=== PATIENT | male | born 1955 | race Caucasian/White ===

== ENCOUNTER 2017-05-02 11:25 | Observation (INO) ==
[2017-05-02] MEDS ORDERED: NITROGLYCERIN SL 0.4 MG TABLET SL PRN (11:58)
[2017-05-02] MEDS ORDERED: ENOXAPARIN 100 MG/ML SYRINGE SUBCUT STA (11:58)
[2017-05-02] MEDS ORDERED: ASPIRIN 325 MG TABLET PO STA (11:58)
[2017-05-02] MEDS ORDERED: ASPIRIN 325 MG TABLET ONE (12:00)
[2017-05-02] MEDS ORDERED: ENOXAPARIN 100 MG/ML SYRINGE SUBCUT ONE (12:00)
[2017-05-02] MEDS ORDERED: NITROGLYCERIN 2% OINT 1 INCH/GM PACK TOP ONE (12:00)
[2017-05-02] MEDS ORDERED: NITROGLYCERIN SL 0.4 MG TABLET SL ONE (12:01)
[2017-05-02 12:24] LABS: Basophils # 0.1 10*3/uL (0.0-0.2); Basophils % 0.7 % (0.0-0.8); Eosinophils # 0.5 10*3/uL (0.0-0.87); Eosinophils % 7.4 % (0.00-10.9); Hematocrit 42.7 VOL% (42.0-52.0); Hemoglobin 14.8 GM/DL (14.0-18.0); Immature Granulocytes Absolute 0.07 #; Lymphocytes # 1.7 10*3/uL (1.4-4.0); Lymphocytes % 23.7 % (21.2-54.2); Mean Corpuscular HGB Conc 34.7 GM/DL (32-36); Mean Corpuscular Hemoglobin 35 PG (27-34); Mean Corpuscular Volume 101.4 FL (87-102); Mean Platelet Volume 9.9 FL (9.6-12.0); Monocytes # 0.3 10*3/uL (0.11-0.8); Monocytes % 3.7 % (1.7-12.7); Neutrophils # 4.5 10*3/uL (1.4-7.4); Neutrophils % 63.5 % (38.7-73.9); Platelet Count 289 T/CUMM (130-400); Red Blood Count 4.21 MC/CUMM (3.8-5.5); Red Cell Distribution Width 11.8 % (9.3-17.3)
[2017-05-02 12:53] LABS: Albumin 4.2 G/DL (3.4-5.0); Bilirubin,Total 0.7 MG/DL (0.2-1.0); Magnesium 2.4 MG/DL (1.8-2.4); Osmolality,Calculated 280.5 MOS/KG (273-304); Potassium 4.1 MMOL/L (3.5-5.1); Total Protein 7.8 G/DL (6.4-8.3)
[2017-05-02] MEDS ORDERED: DIAZEPAM 5 MG TABLET PO ONE (12:59)
[2017-05-02] MEDS ORDERED: diphenhydrAMINE CAP 25 MG CAPSULE PO ONE (12:59)
[2017-05-02] MEDS ORDERED: SODIUM CHLORIDE 0.45% 1,000 ML IV SCH (13:00)
[2017-05-02] MEDS ORDERED: HEPARIN/NACL 0.9% 2 UNITS/ML 2,000 ML IV ONE (14:23)
[2017-05-02] MEDS ORDERED: LIDOCAINE 1%/EPI INJ 20 ML VIAL ONE ×2 (14:23→14:30)
[2017-05-02] MEDS ORDERED: MIDAZOLAM 2 MG/2 ML VIAL ONE (14:29)
[2017-05-02] MEDS ORDERED: fentaNYL 100 MCG/2 ML VIAL ONE (14:29)
[2017-05-02] MEDS ORDERED: HYDROmorphone 2 MG/1 ML VIAL ONE (14:42)
[2017-05-02] MEDS ORDERED: ENOXAPARIN 60 MG/0.6 ML SYRINGE ONE (14:52)
[2017-05-02] MEDS ORDERED: TIROFIBAN 5,000 MCG/100 ML PREMIX IV ONE (14:56)
[2017-05-02] MEDS ORDERED: TIROFIBAN 5,000 MCG/100 ML PREMIX IV SCH (15:04)
[2017-05-02] MEDS ORDERED: TICAGRELOR 90 MG TABLET ONE (15:08)
[2017-05-02] MEDS ORDERED: hydrALAZINE 20 MG/1 ML VIAL ONE (15:14)
[2017-05-02] MEDS ORDERED: cloNIDine 0.1 MG TABLET ONE (15:36)
[2017-05-02 16:10] LABS: Apearance,Urine CLEAR (Clear); Bilirubin,Urine Negative (Negative); Blood, Urine Negative (Negative); Glucose,Urine (UA) Negative (Negative); Ketones,Urine Negative (Negative); Mucus,Urine Occasional /LPF (Occasional); Nitrite,Urine Negative (Negative); Protein,Urine Negative; Urine Color Straw (Yellow); Urine Specific Gravity 1.042 (1.001-1.035); Urine Urobilinogen < 2.0 EU/DL (0.2-1.0); WBC,Urine <1 /HPF (0-6)
[2017-05-02] MEDS ORDERED: ONDANSETRON 4 MG/2 ML VIAL IV PRN (18:39)
[2017-05-02] MEDS ORDERED: ZALEPLON 5 MG CAPSULE PO PRN (18:39)
[2017-05-02] MEDS ORDERED: BISACODYL 5 MG TABLET PO PRN (18:39)
[2017-05-02] MEDS ORDERED: guaiFENesin/DM ER 600-30 MG TABLET PO PRN (18:39)
[2017-05-02] MEDS ORDERED: ATORVASTATIN 80 MG TABLET PO SCH (21:00)
[2017-05-02] MEDS: ACETAMINOPHEN 325 MG TABLET PO PRN (21:13)
[2017-05-03 08:17] LABS: Basophils % 0.5 % (0.0-0.8); Eosinophils # 0.4 10*3/uL (0.0-0.87); Eosinophils % 5.4 % (0.00-10.9); Hematocrit 36.1 VOL% (42.0-52.0); Immature Granulocytes % 0.4 %; Immature Granulocytes Absolute 0.03 #; Lymphocytes # 1.5 10*3/uL (1.4-4.0); Lymphocytes % 18.9 % (21.2-54.2); Mean Corpuscular HGB Conc 35.2 GM/DL (32-36); Mean Corpuscular Hemoglobin 36 PG (27-34); Mean Corpuscular Volume 101.7 FL (87-102); Mean Platelet Volume 10.1 FL (9.6-12.0); Monocytes # 0.5 10*3/uL (0.11-0.8); Monocytes % 6.9 % (1.7-12.7); Neutrophils # 5.3 10*3/uL (1.4-7.4); Neutrophils % 67.9 % (38.7-73.9); Platelet Count 253 T/CUMM (130-400); Red Blood Count 3.55 MC/CUMM (3.8-5.5); White Blood Count 7.8 T/CUMM (4-12)
[2017-05-03 08:25] LABS: Hemoglobin 12.7 GM/DL (14.0-18.0)
[2017-05-03 08:44] LABS: Calcium 8.5 MG/DL (8.5-10.1); Osmolality,Calculated 279.3 MOS/KG (273-304); Potassium 4.4 MMOL/L (3.5-5.1)
[2017-05-03] MEDS ORDERED: PANTOPRAZOLE 40 MG TABLET PO SCH (09:00)
[2017-05-03] MEDS ORDERED: CLOPIDOGREL 300 MG TABLET PO ONE (09:54)
[2017-05-03 11:35] VITALS: BP 134/68
[2017-05-03] MEDS: ACETAMINOPHEN 325 MG TABLET PO PRN (11:39)
[2017-05-03] MEDS ORDERED: ASPIRIN EC 81 MG TABLET PO SCH (15:30)
[2017-05-03] MEDS ORDERED: PROPRANOLOL 40 MG TABLET PO SCH (21:00)
[2017-05-04] MEDS ORDERED: CLOPIDOGREL 75 MG TABLET PO SCH (09:00)
== END 2017-05-03 16:00 | disposition home or self-care (01) ==
LOC: N.ED 11:25 → N.TELES 14:12 → N.CL 14:12 → N.TELES 17:35
PROVIDERS: ADMIT Internal Medicine Interventional Cardiology; ATTEND Internal Medicine Interventional Cardiology
PROC: CLCCHCL (ICD-10-PCS; 2017-05-02 14:45)

== ENCOUNTER 2017-10-03 06:50 | Inpatient (IN) ==
[~2017-10-03 06:50] MED LIST: HEPARIN/NACL 0.9% 2 UNITS/ML 1,000 ML IV ONE; LIDOCAINE 1%/EPI INJ 20 ML VIAL ONE
[2017-10-03] MEDS ORDERED: MAGNESIUM SULF RIDER 2 GM in PREMIX 1 EACH IV PRN (07:13)
[2017-10-03] MEDS ORDERED: DIAZEPAM 5 MG TABLET PO ONE (07:13)
[2017-10-03] MEDS ORDERED: POTASSIUM CHLORIDE RIDER 10 MEQ in PREMIX 1 EACH IV PRN (07:13)
[2017-10-03] MEDS ORDERED: ASPIRIN 325 MG TABLET PO ONE (07:13)
[2017-10-03] MEDS ORDERED: diphenhydrAMINE CAP 25 MG CAPSULE PO ONE (07:13)
[2017-10-03] MEDS ORDERED: DEXTROSE 5% NACL 0.45% 1,000 ML IV SCH (07:30)
[2017-10-03] MEDS ORDERED: DIAZEPAM 5 MG TABLET ONE (07:35)
[2017-10-03] MEDS ORDERED: diphenhydrAMINE CAP 25 MG CAPSULE ONE (07:35)
[2017-10-03] MEDS ORDERED: MIDAZOLAM 2 MG/2 ML VIAL ONE (08:13)
[2017-10-03] MEDS ORDERED: fentaNYL 100 MCG/2 ML VIAL ONE (08:13)
[2017-10-03] MEDS ORDERED: ENOXAPARIN 60 MG/0.6 ML SYRINGE ONE (08:43)
[2017-10-03] MEDS ORDERED: NITROGLYCERIN SL 0.4 MG TABLET SL PRN (09:40)
[2017-10-03] MEDS ORDERED: MAGNESIUM HYDROXIDE SUSP 30 ML UDCUP PO PRN (18:59)
[2017-10-03] MEDS ORDERED: diphenhydrAMINE CAP 25 MG CAPSULE PO PRN (18:59)
[2017-10-03] MEDS ORDERED: DOCUSATE SODIUM 100 MG CAPSULE PO PRN (19:00)
[2017-10-03] MEDS: METOPROLOL TARTRATE 50 MG TABLET PO SCH (21:49)
[2017-10-04] MEDS: ASPIRIN EC 81 MG TABLET PO SCH (08:36)
[2017-10-04] MEDS: PANTOPRAZOLE 40 MG TABLET PO SCH (08:36)
[2017-10-04] MEDS: METOPROLOL TARTRATE 50 MG TABLET PO SCH ×2 (08:36→20:58)
[2017-10-04 13:55] LABS: Calcium 8.6 MG/DL (8.5-10.1); Osmolality,Calculated 280.4 MOS/KG (273-304); Potassium 4.5 MMOL/L (3.5-5.1)
[2017-10-04] MEDS ORDERED: ONDANSETRON 4 MG/2 ML VIAL IV PRN (15:10)
[2017-10-04] MEDS: ROSUVASTATIN 10 MG TABLET PO SCH (20:57)
[2017-10-04] MEDS: ZALEPLON 5 MG CAPSULE PO PRN (20:58)
[2017-10-04] MEDS: ALPRAZolam 0.25 MG TABLET PO PRN (20:58)
[2017-10-04] MEDS ORDERED: EZETIMIBE 10 MG TABLET PO SCH (21:00)
[2017-10-04] MEDS ORDERED: ROSUVASTATIN 10 MG TABLET PO SCH (21:00)
[2017-10-05 04:56] LABS: Basophils # 0.1 10*3/uL (0.0-0.2); Basophils % 1.3 % (0.0-0.8); Eosinophils # 0.5 10*3/uL (0.0-0.87); Eosinophils % 7.6 % (0.00-10.9); Hematocrit 39.8 VOL% (42.0-52.0); Hemoglobin 13.3 GM/DL (14.0-18.0); Immature Granulocytes % 0.4 %; Immature Granulocytes Absolute 0.03 #; Lymphocytes # 1.8 10*3/uL (1.4-4.0); Lymphocytes % 25.5 % (21.2-54.2); Mean Corpuscular HGB Conc 33.4 GM/DL (32-36); Mean Corpuscular Hemoglobin 35 PG (27-34); Mean Corpuscular Volume 103.4 FL (87-102); Mean Platelet Volume 9.4 FL (9.6-12.0); Monocytes # 0.7 10*3/uL (0.11-0.8); Monocytes % 9.9 % (1.7-12.7); Neutrophils # 3.9 10*3/uL (1.4-7.4); Neutrophils % 55.3 % (38.7-73.9); Platelet Count 325 T/CUMM (130-400); Red Blood Count 3.85 MC/CUMM (3.8-5.5); Red Cell Distribution Width 12.5 % (9.3-17.3)
[2017-10-05 05:22] LABS: Calcium 8.6 MG/DL (8.5-10.1); Osmolality,Calculated 284.1 MOS/KG (273-304); Potassium 4.2 MMOL/L (3.5-5.1)
[2017-10-05] MEDS: METOPROLOL TARTRATE 50 MG TABLET PO SCH ×2 (09:33→21:42)
[2017-10-05] MEDS: ASPIRIN EC 81 MG TABLET PO SCH (09:33)
[2017-10-05] MEDS: PANTOPRAZOLE 40 MG TABLET PO SCH (09:33)
[2017-10-05] MEDS: ALPRAZolam 0.25 MG TABLET PO PRN (21:42)
[2017-10-05] MEDS: ZALEPLON 5 MG CAPSULE PO PRN (21:43)
[2017-10-05] MEDS: ROSUVASTATIN 10 MG TABLET PO SCH (21:43)
[2017-10-06] MEDS ORDERED: EPTIFIBATIDE 20,000 MCG/10 ML VIAL IV ONE (00:01)
[2017-10-06] MEDS: EPTIFIBATIDE 75 MG/100 ML BOTTLE IV SCH ×4 (01:12→19:10)
[2017-10-06 05:43] LABS: Basophils # 0.1 10*3/uL (0.0-0.2); Basophils % 0.8 % (0.0-0.8); Eosinophils # 0.5 10*3/uL (0.0-0.87); Hematocrit 42.9 VOL% (42.0-52.0); Hemoglobin 13.9 GM/DL (14.0-18.0); Immature Granulocytes % 0.5 %; Immature Granulocytes Absolute 0.04 #; Lymphocytes # 2.2 10*3/uL (1.4-4.0); Lymphocytes % 25.7 % (21.2-54.2); Mean Corpuscular HGB Conc 32.4 GM/DL (32-36); Mean Corpuscular Hemoglobin 34 PG (27-34); Mean Corpuscular Volume 105.1 FL (87-102); Mean Platelet Volume 9.6 FL (9.6-12.0); Monocytes # 0.7 10*3/uL (0.11-0.8); Monocytes % 7.8 % (1.7-12.7); Neutrophils # 4.9 10*3/uL (1.4-7.4); Neutrophils % 59.2 % (38.7-73.9); Platelet Count 352 T/CUMM (130-400); Red Blood Count 4.08 MC/CUMM (3.8-5.5); Red Cell Distribution Width 12.6 % (9.3-17.3); White Blood Count 8.4 T/CUMM (4-12)
[2017-10-06 06:14] LABS: Calcium 8.8 MG/DL (8.5-10.1); Osmolality,Calculated 283.1 MOS/KG (273-304); Potassium 4.2 MMOL/L (3.5-5.1)
[2017-10-06] MEDS: METOPROLOL TARTRATE 50 MG TABLET PO SCH ×2 (08:26→21:36)
[2017-10-06] MEDS: ASPIRIN EC 81 MG TABLET PO SCH (08:26)
[2017-10-06] MEDS: PANTOPRAZOLE 40 MG TABLET PO SCH (08:28)
[2017-10-06] MEDS: ZALEPLON 5 MG CAPSULE PO PRN (21:36)
[2017-10-06] MEDS: ALPRAZolam 0.25 MG TABLET PO PRN (21:36)
[2017-10-06] MEDS: ROSUVASTATIN 10 MG TABLET PO SCH (21:36)
[2017-10-07] MEDS: EPTIFIBATIDE 75 MG/100 ML BOTTLE IV SCH ×4 (01:32→20:07)
[2017-10-07 06:09] LABS: Basophils # 0.1 10*3/uL (0.0-0.2); Basophils % 1.3 % (0.0-0.8); Eosinophils # 0.5 10*3/uL (0.0-0.87); Eosinophils % 7.5 % (0.00-10.9); Hematocrit 39.8 VOL% (42.0-52.0); Hemoglobin 13.8 GM/DL (14.0-18.0); Immature Granulocytes % 0.5 %; Immature Granulocytes Absolute 0.03 #; Lymphocytes # 1.7 10*3/uL (1.4-4.0); Lymphocytes % 27.1 % (21.2-54.2); Mean Corpuscular HGB Conc 34.7 GM/DL (32-36); Mean Corpuscular Hemoglobin 35 PG (27-34); Mean Platelet Volume 9.6 FL (9.6-12.0); Monocytes # 0.5 10*3/uL (0.11-0.8); Monocytes % 7.2 % (1.7-12.7); Neutrophils # 3.5 10*3/uL (1.4-7.4); Neutrophils % 56.4 % (38.7-73.9); Platelet Count 349 T/CUMM (130-400); Red Blood Count 3.98 MC/CUMM (3.8-5.5); Red Cell Distribution Width 12.4 % (9.3-17.3); White Blood Count 6.2 T/CUMM (4-12)
[2017-10-07 06:22] LABS: Calcium 8.2 MG/DL (8.5-10.1); Osmolality,Calculated 282.3 MOS/KG (273-304); Potassium 4.1 MMOL/L (3.5-5.1)
[2017-10-07] MEDS: ASPIRIN EC 81 MG TABLET PO SCH (08:29)
[2017-10-07] MEDS: METOPROLOL TARTRATE 50 MG TABLET PO SCH ×2 (08:29→20:09)
[2017-10-07] MEDS: PANTOPRAZOLE 40 MG TABLET PO SCH (08:29)
[2017-10-07] MEDS: ROSUVASTATIN 10 MG TABLET PO SCH (20:09)
[2017-10-07] MEDS: ALPRAZolam 0.25 MG TABLET PO PRN (20:09)
[2017-10-07] MEDS: ZALEPLON 5 MG CAPSULE PO PRN (20:09)
[2017-10-08] MEDS: EPTIFIBATIDE 75 MG/100 ML BOTTLE IV SCH ×4 (02:31→22:02)
[2017-10-08 05:18] LABS: Basophils # 0.1 10*3/uL (0.0-0.2); Basophils % 1.2 % (0.0-0.8); Eosinophils # 0.6 10*3/uL (0.0-0.87); Eosinophils % 9.3 % (0.00-10.9); Hemoglobin 13.7 GM/DL (14.0-18.0); Immature Granulocytes % 0.4 %; Immature Granulocytes Absolute 0.03 #; Lymphocytes # 1.7 10*3/uL (1.4-4.0); Lymphocytes % 25.8 % (21.2-54.2); Mean Corpuscular HGB Conc 35.1 GM/DL (32-36); Mean Corpuscular Hemoglobin 35 PG (27-34); Mean Corpuscular Volume 99.5 FL (87-102); Mean Platelet Volume 9.3 FL (9.6-12.0); Monocytes # 0.6 10*3/uL (0.11-0.8); Monocytes % 8.4 % (1.7-12.7); Neutrophils # 3.7 10*3/uL (1.4-7.4); Neutrophils % 54.9 % (38.7-73.9); Platelet Count 323 T/CUMM (130-400); Red Blood Count 3.92 MC/CUMM (3.8-5.5); Red Cell Distribution Width 12.2 % (9.3-17.3); White Blood Count 6.8 T/CUMM (4-12)
[2017-10-08 05:45] LABS: Calcium 8.6 MG/DL (8.5-10.1); Osmolality,Calculated 282.3 MOS/KG (273-304); Potassium 4.3 MMOL/L (3.5-5.1)
[2017-10-08] MEDS: PANTOPRAZOLE 40 MG TABLET PO SCH (08:03)
[2017-10-08] MEDS: ASPIRIN EC 81 MG TABLET PO SCH (08:03)
[2017-10-08] MEDS: METOPROLOL TARTRATE 50 MG TABLET PO SCH (08:03)
[2017-10-08] MEDS ORDERED: METOPROLOL TARTRATE 25 MG TABLET ONE (19:46)
[2017-10-08] MEDS: METOPROLOL TARTRATE 25 MG TABLET PO SCH (20:32)
[2017-10-08] MEDS: ALPRAZolam 0.25 MG TABLET PO PRN (20:32)
[2017-10-08] MEDS: ROSUVASTATIN 10 MG TABLET PO SCH (20:33)
[2017-10-08] MEDS: ZALEPLON 5 MG CAPSULE PO PRN (20:33)
[2017-10-09] MEDS: EPTIFIBATIDE 75 MG/100 ML BOTTLE IV SCH ×3 (05:37→17:25)
[2017-10-09 05:47] LABS: Basophils # 0.1 10*3/uL (0.0-0.2); Basophils % 0.9 % (0.0-0.8); Eosinophils # 0.5 10*3/uL (0.0-0.87); Eosinophils % 7.8 % (0.00-10.9); Hemoglobin 13.6 GM/DL (14.0-18.0); Immature Granulocytes % 0.3 %; Immature Granulocytes Absolute 0.02 #; Lymphocytes # 1.6 10*3/uL (1.4-4.0); Lymphocytes % 24.7 % (21.2-54.2); Mean Corpuscular HGB Conc 34.9 GM/DL (32-36); Mean Corpuscular Hemoglobin 35 PG (27-34); Mean Corpuscular Volume 99.2 FL (87-102); Mean Platelet Volume 9.3 FL (9.6-12.0); Monocytes # 0.5 10*3/uL (0.11-0.8); Monocytes % 7.8 % (1.7-12.7); Neutrophils # 3.9 10*3/uL (1.4-7.4); Neutrophils % 58.5 % (38.7-73.9); Platelet Count 326 T/CUMM (130-400); Red Blood Count 3.93 MC/CUMM (3.8-5.5); Red Cell Distribution Width 12.1 % (9.3-17.3); White Blood Count 6.6 T/CUMM (4-12)
[2017-10-09 06:25] LABS: Calcium 8.6 MG/DL (8.5-10.1); Osmolality,Calculated 280.4 MOS/KG (273-304); Potassium 4.3 MMOL/L (3.5-5.1)
[2017-10-09] MEDS: ASPIRIN EC 81 MG TABLET PO SCH (08:48)
[2017-10-09] MEDS: METOPROLOL TARTRATE 25 MG TABLET PO SCH ×2 (08:48→21:38)
[2017-10-09] MEDS: PANTOPRAZOLE 40 MG TABLET PO SCH (08:48)
[2017-10-09] MEDS: ALPRAZolam 0.25 MG TABLET PO PRN ×2 (12:59→21:39)
[2017-10-09] MEDS: CHLORHEXIDINE 4% SOLN 118 ML BOTTLE TOP SCH ×2 (16:00→21:40)
[2017-10-09] MEDS ORDERED: SODIUM CHLORIDE 0.9% 1,000 ML IV SCH (19:00)
[2017-10-09] MEDS: ROSUVASTATIN 10 MG TABLET PO SCH (21:38)
[2017-10-09] MEDS: CHLORHEXIDINE 0.12% ORAL RINSE 60 ML BOTTLE SWISH/SPIT SCH (21:39)
[2017-10-09] MEDS: ZALEPLON 5 MG CAPSULE PO PRN (22:43)
[2017-10-10 04:53] LABS: Basophils # 0.1 10*3/uL (0.0-0.2); Eosinophils # 0.6 10*3/uL (0.0-0.87); Eosinophils % 8.1 % (0.00-10.9); Hematocrit 40.1 VOL% (42.0-52.0); Hemoglobin 13.6 GM/DL (14.0-18.0); Immature Granulocytes % 0.5 %; Immature Granulocytes Absolute 0.04 #; Lymphocytes # 1.9 10*3/uL (1.4-4.0); Lymphocytes % 23.7 % (21.2-54.2); Mean Corpuscular HGB Conc 33.9 GM/DL (32-36); Mean Corpuscular Hemoglobin 34 PG (27-34); Mean Corpuscular Volume 101.5 FL (87-102); Mean Platelet Volume 9.5 FL (9.6-12.0); Monocytes # 0.6 10*3/uL (0.11-0.8); Monocytes % 7.9 % (1.7-12.7); Neutrophils # 4.6 10*3/uL (1.4-7.4); Neutrophils % 58.8 % (38.7-73.9); Platelet Count 329 T/CUMM (130-400); Red Blood Count 3.95 MC/CUMM (3.8-5.5); White Blood Count 7.8 T/CUMM (4-12)
[2017-10-10] MEDS ORDERED: CEFUROXIME INJ 1,500 MG in SYRINGE 1 EACH IV ONE (05:00)
[2017-10-10] MEDS: CHLORHEXIDINE 4% SOLN 118 ML BOTTLE TOP SCH ×2 (05:00→08:06)
[2017-10-10] MEDS ORDERED: VANCOMYCIN 1,000 MG VIAL ONE (05:24)
[2017-10-10] MEDS ORDERED: TISSUE ADHESIVE 1 EACH APPLICATOR TOP ONE (05:24)
[2017-10-10] MEDS ORDERED: PAPAVERINE 60 MG/2 ML VIAL ONE (05:24)
[2017-10-10 05:29] LABS: Albumin 3.6 G/DL (3.4-5.0); Bilirubin,Total 0.9 MG/DL (0.2-1.0); Calcium 8.8 MG/DL (8.5-10.1); Osmolality,Calculated 280.4 MOS/KG (273-304); Potassium 4.4 MMOL/L (3.5-5.1); Total Protein 6.9 G/DL (6.4-8.3)
[2017-10-10] MEDS ORDERED: EPINEPHrine 1 MG/ML VIAL ONE (05:48)
[2017-10-10] MEDS ORDERED: SUFentanil 250 MCG/5 ML AMP ONE (05:48)
[2017-10-10] MEDS ORDERED: PROPOFOL 1,500 MG/150 ML BOTTLE IV ONE (05:49)
[2017-10-10] MEDS ORDERED: MIDAZOLAM 10 MG/2 ML VIAL ONE (05:49)
[2017-10-10] MEDS ORDERED: DIAZEPAM 5 MG TABLET PO ONE (06:00)
[2017-10-10 07:50] LABS: ABG Base Excess -2.2 MMOL/L (-2.5-2.5); ABG HCO3 22.6 MMOL/L (20-26); ABG PCO2 43.8 MM HG (35-48); ABG PH 7.341 (7.35-7.45); ABG TCO2 20.9 MMOL/L (23-27); Glucose Heart Surgery 111 MG/DL (74-106); Hematocrit Heart Surgery 39.8 PERCENT (42-52); Hemoglobin Heart Surgery 12.9 G/DL (14.0-18.0); Ionized Calcium Arterial 1.22 MMOL/L (1.21-1.46); PCO2 Patient Temp Arterial 43.8 MMHG; PH Patient Temp Arterial 7.341; Patient Temperature 37 CELCIUS; Potassium Heart/CVR 4.2 MMOL/L (3.5-5.1); Sodium Heart/CVR 138 MMOL/L (135-145)
[2017-10-10] MEDS: ASPIRIN EC 81 MG TABLET PO SCH (08:05)
[2017-10-10] MEDS: CHLORHEXIDINE 0.12% ORAL RINSE 60 ML BOTTLE SWISH/SPIT SCH ×2 (08:06→21:30)
[2017-10-10] MEDS: METOPROLOL TARTRATE 25 MG TABLET PO SCH (08:06)
[2017-10-10] MEDS: PANTOPRAZOLE 40 MG TABLET PO SCH (08:06)
[2017-10-10 08:12] LABS: Apearance,Urine CLEAR (Clear); Bilirubin,Urine Negative (Negative); Blood, Urine Large mg/dL (Negative); Glucose,Urine (UA) Negative (Negative); Ketones,Urine Negative (Negative); Mucus,Urine Occasional /LPF (Occasional); Nitrite,Urine Negative (Negative); Protein,Urine Negative; RBC,Urine 116 /HPF (0-4); Urine Color Yellow (Yellow); Urine Specific Gravity 1.011 (1.001-1.035); Urine Urobilinogen < 2.0 EU/DL (0.2-1.0); WBC,Urine 4 /HPF (0-6)
[2017-10-10] MEDS ORDERED: SODIUM BICARBONATE 50 MEQ/50 ML SYRINGE IV ONE ×2 (08:31→10:27)
[2017-10-10] MEDS ORDERED: CALCIUM CHLORIDE 1,000 MG/10 ML SYRINGE IV ONE (08:32)
[2017-10-10] MEDS ORDERED: POTASSIUM CHLORIDE RIDER 100 ML IV ONE (08:32)
[2017-10-10] MEDS ORDERED: ATROPINE 1 MG/10 ML SYRINGE ONE (08:32)
[2017-10-10] MEDS ORDERED: ALBUMIN 5% 12.5 GM/250 ML VIAL IV ONE (08:32)
[2017-10-10] MEDS ORDERED: EPINEPHrine 1 MG/10 ML SYRINGE ONE (08:33)
[2017-10-10 09:02] LABS: Hematocrit Heart Surgery 26.8 PERCENT (42-52); Hemoglobin Heart Surgery 8.6 G/DL (14.0-18.0); PCO2 Patient Temp Venous 40.9 MM HG; PH Patient Temp Venous 7.328; Potassium Heart/CVR 3.8 MMOL/L (3.5-5.1); VBG Base Excess -4.1 MEQ/L (0-4); VBG HCO3 20.7 MEQ/L (24-28); VBG Oxygen Saturation 74.9 %; VBG PH 7.3; VBG PO2 44.8 MMHG (17-40)
[2017-10-10 09:41] LABS: Hemoglobin Heart Surgery 9.3 G/DL (14.0-18.0); PCO2 Patient Temp Venous 36.8 MM HG; PH Patient Temp Venous 7.382; PO2 Patient Temp Venous 43.5 MM HG; Potassium Heart/CVR 4.3 MMOL/L (3.5-5.1); VBG Base Excess -3.4 MEQ/L (0-4); VBG HCO3 21.6 MEQ/L (24-28); VBG Oxygen Saturation 77.7 %; VBG PCO2 38.4 MMHG (41-51); VBG PH 7.368; VBG PO2 46.7 MMHG (17-40)
[2017-10-10] MEDS ORDERED: THROMBIN TOPICAL (RECOMBINANT) 5,000 UNIT VIAL TOP ONE (09:47)
[2017-10-10 10:17] LABS: ABG Base Excess -7.2 MMOL/L (-2.5-2.5); ABG HCO3 18.5 MMOL/L (20-26); ABG Oxygen Saturation 97.3 % (95-100); ABG PCO2 46.9 MM HG (35-48); ABG PH 7.241 (7.35-7.45); ABG TCO2 18.6 MMOL/L (23-27); Glucose Heart Surgery 236 MG/DL (74-106); Hematocrit Heart Surgery 32.6 PERCENT (42-52); Hemoglobin Heart Surgery 10.6 G/DL (14.0-18.0); Ionized Calcium Arterial 1.26 MMOL/L (1.21-1.46); PCO2 Patient Temp Arterial 46.9 MMHG; PH Patient Temp Arterial 7.241; Patient Temperature 37 CELCIUS; Potassium Heart/CVR 3.5 MMOL/L (3.5-5.1); Sodium Heart/CVR 135 MMOL/L (135-145)
[2017-10-10] MEDS ORDERED: PROTAMINE SULFATE 250 MG/25 ML VIAL IV ONE (10:27)
[2017-10-10] MEDS ORDERED: DEXTROSE 5% KCL 20 MEQ 20 MEQ/1,000 ML BAG IV ONE (10:27)
[2017-10-10] MEDS ORDERED: MAGNESIUM SULFATE 1 GM/2 ML VIAL ONE (10:27)
[2017-10-10] MEDS ORDERED: ALBUMIN 25% 25 GM/100 ML VIAL IV ONE (10:27)
[2017-10-10] MEDS ORDERED: methylPREDNISolone SOD SUC 1,000 MG/8 ML VIAL ONE (10:28)
[2017-10-10] MEDS ORDERED: HEPARIN 10,000 UNIT/10 ML VIAL ONE (10:28)
[2017-10-10] MEDS ORDERED: PROTAMINE SULFATE 50 MG/5 ML VIAL IV ONE (10:28)
[2017-10-10] MEDS ORDERED: PHENYLEPHRINE 10 MG/1 ML VIAL IV ONE ×2 (10:28→11:15)
[2017-10-10] MEDS ORDERED: MANNITOL 12.5 GM/50 ML VIAL IV ONE (10:28)
[2017-10-10] MEDS ORDERED: FUROSEMIDE 20 MG/2 ML VIAL ONE (10:28)
[2017-10-10] MEDS: SODIUM CHLORIDE 0.45% 1,000 ML IV SCH ×2 (11:00)
[2017-10-10] MEDS ORDERED: INSULIN REGULAR 100 UNIT/ML IV PRN (11:06)
[2017-10-10] MEDS ORDERED: SODIUM CHLORIDE 0.9% 250 ML IV PRN (11:06)
[2017-10-10] MEDS ORDERED: POTASSIUM CHLORIDE RIDER 10 MEQ in PREMIX 1 EACH IV PRN (11:06)
[2017-10-10] MEDS ORDERED: ACETAMINOPHEN 650 MG SUPP RECTAL PRN (11:06)
[2017-10-10] MEDS ORDERED: MAGNESIUM SULF RIDER 2 GM in PREMIX 1 EACH IV PRN (11:06)
[2017-10-10] MEDS ORDERED: CHLORHEXIDINE 4% SOLN 118 ML BOTTLE TOP PRN (11:06)
[2017-10-10] MEDS ORDERED: MIDAZOLAM 2 MG/2 ML VIAL IV PRN (11:06)
[2017-10-10] MEDS ORDERED: DEXTROSE 50% 25 GM/50 ML VIAL IV PRN ×2 (11:06)
[2017-10-10] MEDS ORDERED: CALCIUM CHLORIDE 1,000 MG/10 ML SYRINGE IV PRN (11:06)
[2017-10-10] MEDS ORDERED: MAGNESIUM SULF RIDER 4 GM in PREMIX 1 EACH IV PRN (11:06)
[2017-10-10] MEDS ORDERED: CALCIUM CHLORIDE 1,000 MG/10 ML VIAL IV ONE (11:15)
[2017-10-10] MEDS ORDERED: SEVOFLURANE 1 UNIT/15 MINUTE INH ONE (11:15)
[2017-10-10] MEDS ORDERED: VECURONIUM 10 MG VIAL IV ONE (11:15)
[2017-10-10] MEDS ORDERED: LACTATED RINGERS 4,000 ML IV ONE (11:16)
[2017-10-10] MEDS ORDERED: ETOMIDATE 40 MG/20 ML VIAL IV ONE (11:16)
[2017-10-10] MEDS ORDERED: SODIUM CHLORIDE 0.9% 2,000 ML IV ONE (11:16)
[2017-10-10] MEDS ORDERED: SODIUM CHLORIDE 0.9% 200 ML IV ONE (11:16)
[2017-10-10 11:23] LABS: ABG Base Excess -5.9 MMOL/L (-2.5-2.5); ABG HCO3 19.5 MMOL/L (20-26); ABG Oxygen Saturation 94.6 % (95-100); ABG PCO2 40.4 MM HG (35-48); ABG PH 7.305 (7.35-7.45); ABG TCO2 18.3 MMOL/L (23-27); Glucose Heart Surgery 200 MG/DL (74-106); Hematocrit Heart Surgery 33.3 PERCENT (42-52); Hemoglobin Heart Surgery 10.8 G/DL (14.0-18.0); Potassium Heart/CVR 3.8 MMOL/L (3.5-5.1)
[2017-10-10 11:26] LABS: Basophils # 0.1 10*3/uL (0.0-0.2); Basophils % 0.5 % (0.0-0.8); Eosinophils # 0.2 10*3/uL (0.0-0.87); Eosinophils % 1.7 % (0.00-10.9); Hematocrit 31.4 VOL% (42.0-52.0); Hemoglobin 10.5 GM/DL (14.0-18.0); Immature Granulocytes % 0.7 %; Immature Granulocytes Absolute 0.09 #; Lymphocytes # 0.7 10*3/uL (1.4-4.0); Lymphocytes % 5.8 % (21.2-54.2); Mean Corpuscular HGB Conc 33.4 GM/DL (32-36); Mean Corpuscular Hemoglobin 35 PG (27-34); Mean Platelet Volume 9.4 FL (9.6-12.0); Monocytes # 0.3 10*3/uL (0.11-0.8); Monocytes % 2.7 % (1.7-12.7); Neutrophils # 10.7 10*3/uL (1.4-7.4); Neutrophils % 88.6 % (38.7-73.9); Platelet Count 257 T/CUMM (130-400); Red Blood Count 3.02 MC/CUMM (3.8-5.5); Red Cell Distribution Width 12.3 % (9.3-17.3); White Blood Count 12.1 T/CUMM (4-12)
[2017-10-10] MEDS ORDERED: INSULIN REGULAR DRIP 100 ML IV SCH (11:30)
[2017-10-10 11:35] LABS: INR 1.1; PT Patient Result 11.9 SECS
[2017-10-10] MEDS: POTASSIUM CHLORIDE RIDER 20 MEQ in PREMIX 1 EACH IV PRN ×2 (11:35→12:15)
[2017-10-10 11:44] LABS: Lactic Acid 5.6 MMOL/L (0.4-2.0)
[2017-10-10 11:49] LABS: Blood Urea Nitrogen 16 MG/DL (7-18); Calcium 7.7 MG/DL (8.5-10.1); Glucose 188 MG/DL (74-106); Osmolality,Calculated 284.4 MOS/KG (273-304); Potassium 3.9 MMOL/L (3.5-5.1); Sodium 140 MMOL/L (136-145)
[2017-10-10 12:06] LABS: Band Neutrophils 6 % (0-10); Eosinophils 3 % (0-10); Giant Platelets Few; Hypochromasia 1+; Lymphocytes 5 % (20-55); Platelet Estimate Adequate; Segmented Neutrophils 82 % (50-85); Total Cells Counted 100
[2017-10-10] MEDS: ALBUMIN 5% 12.5 GM in PREMIX 1 EACH IV PRN ×2 (12:53→15:25)
[2017-10-10] MEDS: MORPHINE 10 MG/1 ML VIAL IV PRN ×4 (13:03→21:12)
[2017-10-10] MEDS ORDERED: NITROGLYCERIN DRIP 50 MG/250 ML BOTTLE IV PRN (13:08)
[2017-10-10] MEDS ORDERED: NITROGLYCERIN DRIP 50 MG/250 ML BOTTLE IV ONE (13:10)
[2017-10-10] MEDS ORDERED: METOPROLOL TARTRATE 5 MG/5 ML VIAL IV ONE ×3 (13:20→18:45)
[2017-10-10] MEDS ORDERED: ASPIRIN 325 MG TABLET PER TUBE ONE (15:33)
[2017-10-10 16:18] LABS: ABG Base Excess -1.3 MMOL/L (-2.5-2.5); ABG HCO3 23.3 MMOL/L (20-26); ABG Oxygen Saturation 95.2 % (95-100); ABG PCO2 39.9 MM HG (35-48); ABG PH 7.381 (7.35-7.45); ABG PO2 76.4 MM HG (80-95); ABG TCO2 21.3 MMOL/L (23-27); Glucose Heart Surgery 132 MG/DL (74-106); Hematocrit Heart Surgery 33.7 PERCENT (42-52); Hemoglobin Heart Surgery 10.9 G/DL (14.0-18.0); Potassium Heart/CVR 4.1 MMOL/L (3.5-5.1)
[2017-10-10] MEDS ORDERED: ALBUTEROL/IPRATROPIUM 3 ML NEB RESP TX ONE ×2 (16:30→20:12)
[2017-10-10] MEDS: CEFUROXIME INJ 1,500 MG in SYRINGE 1 EACH IV SCH (18:55)
[2017-10-10] MEDS ORDERED: LACTATED RINGERS 500 ML IV ONE (20:14)
[2017-10-10] MEDS: MORPHINE 4 MG/1 ML VIAL IV PRN (20:19)
[2017-10-10 21:10] LABS: Calcium 7.7 MG/DL (8.5-10.1); Osmolality,Calculated 276.7 MOS/KG (273-304); Potassium 4.5 MMOL/L (3.5-5.1)
[2017-10-10] MEDS: ALBUTEROL/IPRATROPIUM 3 ML NEB RESP TX SCH (23:46)
[2017-10-11] MEDS: SODIUM CHLORIDE 0.45% 1,000 ML IV SCH ×4 (00:22→08:11)
[2017-10-11] MEDS: ALBUTEROL/IPRATROPIUM 3 ML NEB RESP TX SCH ×6 (03:42→23:45)
[2017-10-11 03:57] LABS: Basophils % 0.1 % (0.0-0.8); Hematocrit 29.5 VOL% (42.0-52.0); Immature Granulocytes % 0.4 %; Immature Granulocytes Absolute 0.07 #; Lymphocytes # 0.6 10*3/uL (1.4-4.0); Mean Corpuscular HGB Conc 33.9 GM/DL (32-36); Mean Corpuscular Hemoglobin 35 PG (27-34); Mean Corpuscular Volume 102.8 FL (87-102); Mean Platelet Volume 9.4 FL (9.6-12.0); Monocytes # 0.6 10*3/uL (0.11-0.8); Monocytes % 3.5 % (1.7-12.7); Neutrophils # 14.7 10*3/uL (1.4-7.4); Platelet Count 276 T/CUMM (130-400); Red Blood Count 2.87 MC/CUMM (3.8-5.5); Red Cell Distribution Width 12.4 % (9.3-17.3); White Blood Count 15.9 T/CUMM (4-12)
[2017-10-11] MEDS: MORPHINE 10 MG/1 ML VIAL IV PRN ×6 (04:10→21:32)
[2017-10-11 04:19] LABS: Calcium 8.2 MG/DL (8.5-10.1); Osmolality,Calculated 278.7 MOS/KG (273-304); Potassium 4.1 MMOL/L (3.5-5.1)
[2017-10-11 04:46] LABS: Band Neutrophils 2 % (0-10); Giant Platelets Few; Hypochromasia 1+; Lymphocytes 3 % (20-55); Platelet Estimate Adequate; Segmented Neutrophils 90 % (50-85); Total Cells Counted 100
[2017-10-11] MEDS: CEFUROXIME INJ 1,500 MG in SYRINGE 1 EACH IV SCH ×2 (06:13→18:40)
[2017-10-11] MEDS ORDERED: FUROSEMIDE 40 MG/4 ML VIAL IV ONE (06:54)
[2017-10-11 07:25] LABS: ABG Base Excess 0.3 MMOL/L (-2.5-2.5); ABG HCO3 24.5 MMOL/L (20-26); ABG Oxygen Saturation 86.9 % (95-100); ABG PCO2 38.7 MM HG (35-48); ABG PH 7.413 (7.35-7.45); ABG PO2 53.6 MM HG (80-95); ABG TCO2 22.5 MMOL/L (23-27)
[2017-10-11] MEDS: INSULIN REGULAR 100 UNIT/ML SUBCUT SCH ×4 (08:09→20:13)
[2017-10-11] MEDS: METOPROLOL TARTRATE 25 MG TABLET PO SCH ×2 (08:29→21:31)
[2017-10-11] MEDS: ASPIRIN EC 325 MG TABLET PO SCH (08:29)
[2017-10-11] MEDS: methylPREDNISolone SOD SUC 40 MG/1 ML VIAL IV SCH ×2 (08:29→15:43)
[2017-10-11] MEDS: CLOPIDOGREL 75 MG TABLET PO SCH (08:29)
[2017-10-11] MEDS: FUROSEMIDE 40 MG TABLET PO SCH (08:29)
[2017-10-11] MEDS: CHLORHEXIDINE 0.12% ORAL RINSE 60 ML BOTTLE SWISH/SPIT SCH ×2 (08:31→21:39)
[2017-10-11 08:48] LABS: ABG Base Excess 1.4 MMOL/L (-2.5-2.5); ABG HCO3 25.6 MMOL/L (20-26); ABG Oxygen Saturation 96.6 % (95-100); ABG PCO2 38.7 MM HG (35-48); ABG PH 7.429 (7.35-7.45); ABG PO2 83.9 MM HG (80-95); ABG TCO2 22.9 MMOL/L (23-27)
[2017-10-11] MEDS ORDERED: INSULIN REGULAR 100 UNIT/ML SUBCUT SCH (10:00)
[2017-10-11] MEDS ORDERED: ATORVASTATIN 40 MG TABLET PO SCH (21:00)
[2017-10-11] MEDS: ROSUVASTATIN 10 MG TABLET PO SCH (21:39)
[2017-10-12] MEDS: methylPREDNISolone SOD SUC 40 MG/1 ML VIAL IV SCH ×3 (00:05→15:49)
[2017-10-12] MEDS: MORPHINE 10 MG/1 ML VIAL IV PRN ×3 (00:08→13:44)
[2017-10-12] MEDS: diphenhydrAMINE 50 MG/1 ML VIAL IV PRN (00:11)
[2017-10-12 03:47] LABS: Basophils % 0.1 % (0.0-0.8); Immature Granulocytes % 0.7 %; Immature Granulocytes Absolute 0.15 #; Lymphocytes # 0.7 10*3/uL (1.4-4.0); Lymphocytes % 3.1 % (21.2-54.2); Mean Corpuscular HGB Conc 33.3 GM/DL (32-36); Mean Corpuscular Hemoglobin 35 PG (27-34); Mean Corpuscular Volume 104.5 FL (87-102); Mean Platelet Volume 9.5 FL (9.6-12.0); Monocytes % 4.9 % (1.7-12.7); Neutrophils # 19.4 10*3/uL (1.4-7.4); Neutrophils % 91.2 % (38.7-73.9); Platelet Count 285 T/CUMM (130-400); Red Blood Count 2.87 MC/CUMM (3.8-5.5); Red Cell Distribution Width 12.6 % (9.3-17.3); White Blood Count 21.3 T/CUMM (4-12)
[2017-10-12 04:06] LABS: Calcium 8.5 MG/DL (8.5-10.1)
[2017-10-12 04:07] LABS: Osmolality,Calculated 281.5 MOS/KG (273-304); Potassium 4.2 MMOL/L (3.5-5.1)
[2017-10-12] MEDS: ALBUTEROL/IPRATROPIUM 3 ML NEB RESP TX SCH ×6 (04:09→23:45)
[2017-10-12] MEDS: INSULIN REGULAR 100 UNIT/ML SUBCUT SCH ×6 (04:10→19:37)
[2017-10-12] MEDS: POTASSIUM CHLORIDE RIDER 20 MEQ in PREMIX 1 EACH IV PRN ×2 (04:19→09:22)
[2017-10-12 04:41] LABS: Giant Platelets Few; Hypochromasia 1+; Lymphocytes 5 % (20-55); Platelet Estimate Adequate; Segmented Neutrophils 91 % (50-85); Total Cells Counted 100
[2017-10-12] MEDS: CHLORHEXIDINE 0.12% ORAL RINSE 60 ML BOTTLE SWISH/SPIT SCH ×2 (08:09→21:42)
[2017-10-12] MEDS: FUROSEMIDE 40 MG TABLET PO SCH (08:09)
[2017-10-12] MEDS: CARVEDILOL 6.25 MG TABLET PO SCH ×2 (08:09→21:42)
[2017-10-12] MEDS: CLOPIDOGREL 75 MG TABLET PO SCH (08:09)
[2017-10-12] MEDS: ASPIRIN EC 325 MG TABLET PO SCH (08:09)
[2017-10-12] MEDS: MORPHINE 4 MG/1 ML VIAL IV PRN ×3 (15:50→23:03)
[2017-10-12] MEDS: ONDANSETRON 4 MG/2 ML VIAL IV PRN ×2 (19:42→23:08)
[2017-10-12] MEDS ORDERED: ALPRAZolam 0.25 MG TABLET ONE (19:44)
[2017-10-12] MEDS: ALPRAZolam 0.25 MG TABLET PO PRN (19:46)
[2017-10-12] MEDS: ZALEPLON 5 MG CAPSULE PO PRN (21:42)
[2017-10-12] MEDS: ROSUVASTATIN 10 MG TABLET PO SCH (21:42)
[2017-10-13] MEDS: INSULIN REGULAR 100 UNIT/ML SUBCUT SCH ×6 (00:30→22:05)
[2017-10-13] MEDS: methylPREDNISolone SOD SUC 40 MG/1 ML VIAL IV SCH ×3 (00:40→17:19)
[2017-10-13] MEDS: diphenhydrAMINE 50 MG/1 ML VIAL IV PRN (00:44)
[2017-10-13] MEDS: ALBUTEROL/IPRATROPIUM 3 ML NEB RESP TX SCH ×6 (02:53→23:11)
[2017-10-13 05:48] LABS: Basophils % 0.1 % (0.0-0.8); Hematocrit 28.6 VOL% (42.0-52.0); Hemoglobin 9.6 GM/DL (14.0-18.0); Immature Granulocytes % 1.4 %; Immature Granulocytes Absolute 0.28 #; Lymphocytes # 0.9 10*3/uL (1.4-4.0); Lymphocytes % 4.6 % (21.2-54.2); Mean Corpuscular HGB Conc 33.6 GM/DL (32-36); Mean Corpuscular Hemoglobin 35 PG (27-34); Mean Corpuscular Volume 104.4 FL (87-102); Monocytes # 0.6 10*3/uL (0.11-0.8); Monocytes % 3.1 % (1.7-12.7); Neutrophils # 18.5 10*3/uL (1.4-7.4); Neutrophils % 90.8 % (38.7-73.9); Platelet Count 276 T/CUMM (130-400); Red Blood Count 2.74 MC/CUMM (3.8-5.5); Red Cell Distribution Width 12.8 % (9.3-17.3); White Blood Count 20.4 T/CUMM (4-12)
[2017-10-13 06:15] LABS: Calcium 8.4 MG/DL (8.5-10.1); Osmolality,Calculated 286.5 MOS/KG (273-304); Potassium 4.4 MMOL/L (3.5-5.1)
[2017-10-13 08:46] LABS: Hypochromasia 1+; Lymphocytes 12 % (20-55); Microcytosis 1+; Platelet Estimate Adequate; Segmented Neutrophils 87 % (50-85); Total Cells Counted 100
[2017-10-13] MEDS: CLOPIDOGREL 75 MG TABLET PO SCH (09:04)
[2017-10-13] MEDS: ASPIRIN EC 325 MG TABLET PO SCH (09:04)
[2017-10-13] MEDS: BISACODYL 5 MG TABLET PO SCH (09:05)
[2017-10-13] MEDS: FUROSEMIDE 40 MG TABLET PO SCH (09:05)
[2017-10-13] MEDS: CARVEDILOL 6.25 MG TABLET PO SCH ×2 (09:05→22:04)
[2017-10-13] MEDS: DOCUSATE SODIUM 100 MG CAPSULE PO SCH ×2 (09:05→22:04)
[2017-10-13] MEDS: CHLORHEXIDINE 0.12% ORAL RINSE 60 ML BOTTLE SWISH/SPIT SCH ×2 (09:09→22:04)
[2017-10-13] MEDS: MORPHINE 4 MG/1 ML VIAL IV PRN ×4 (09:50→19:40)
[2017-10-13] MEDS ORDERED: AMIODARONE INJ 150 MG in DEXTROSE 5% 100 ML IV ONE (14:58)
[2017-10-13] MEDS ORDERED: AMIODARONE 150 MG/3 ML VIAL ONE (15:00)
[2017-10-13] MEDS ORDERED: AMIODARONE INJ 450 MG in DEXTROSE 5% 241 ML IV SCH (15:00)
[2017-10-13] MEDS: ROSUVASTATIN 10 MG TABLET PO SCH (22:03)
[2017-10-13] MEDS: ALPRAZolam 0.25 MG TABLET PO PRN (22:04)
[2017-10-13] MEDS: ZALEPLON 5 MG CAPSULE PO PRN (22:04)
[2017-10-14] MEDS: MORPHINE 4 MG/1 ML VIAL IV PRN ×5 (00:18→21:02)
[2017-10-14] MEDS: methylPREDNISolone SOD SUC 40 MG/1 ML VIAL IV SCH ×3 (00:20→17:07)
[2017-10-14] MEDS: AMIODARONE INJ 450 MG in DEXTROSE 5% 241 ML IV SCH ×2 (00:20→16:39)
[2017-10-14] MEDS: INSULIN REGULAR 100 UNIT/ML SUBCUT SCH ×6 (02:22→23:10)
[2017-10-14] MEDS: ALBUTEROL/IPRATROPIUM 3 ML NEB RESP TX SCH ×2 (02:32→07:23)
[2017-10-14 05:39] LABS: Basophils % 0.1 % (0.0-0.8); Hematocrit 29.3 VOL% (42.0-52.0); Hemoglobin 9.4 GM/DL (14.0-18.0); Immature Granulocytes % 1.3 %; Immature Granulocytes Absolute 0.25 #; Lymphocytes % 5.5 % (21.2-54.2); Mean Corpuscular HGB Conc 32.1 GM/DL (32-36); Mean Corpuscular Hemoglobin 33 PG (27-34); Mean Corpuscular Volume 103.9 FL (87-102); Mean Platelet Volume 10.4 FL (9.6-12.0); Monocytes # 0.7 10*3/uL (0.11-0.8); Monocytes % 3.8 % (1.7-12.7); Neutrophils # 16.8 10*3/uL (1.4-7.4); Neutrophils % 89.3 % (38.7-73.9); Platelet Count 318 T/CUMM (130-400); Red Blood Count 2.82 MC/CUMM (3.8-5.5); Red Cell Distribution Width 12.2 % (9.3-17.3); White Blood Count 18.9 T/CUMM (4-12)
[2017-10-14 06:13] LABS: Calcium 8.3 MG/DL (8.5-10.1); Osmolality,Calculated 285.5 MOS/KG (273-304); Potassium 4.3 MMOL/L (3.5-5.1)
[2017-10-14] MEDS ORDERED: ACETAMINOPHEN 325 MG TABLET PO PRN (07:55)
[2017-10-14] MEDS ORDERED: ALBUTEROL/IPRATROPIUM 3 ML NEB RESP TX PRN (09:02)
[2017-10-14] MEDS ORDERED: SODIUM PHOSPHATE ENEMA 133 ML BOTTLE RECTAL ONE (09:21)
[2017-10-14] MEDS: BISACODYL 5 MG TABLET PO SCH (09:27)
[2017-10-14] MEDS: FUROSEMIDE 40 MG TABLET PO SCH (09:27)
[2017-10-14] MEDS: ASPIRIN EC 325 MG TABLET PO SCH (09:27)
[2017-10-14] MEDS: CLOPIDOGREL 75 MG TABLET PO SCH (09:27)
[2017-10-14] MEDS: DOCUSATE SODIUM 100 MG CAPSULE PO SCH ×2 (09:27→21:03)
[2017-10-14] MEDS: CARVEDILOL 6.25 MG TABLET PO SCH ×2 (09:27→21:03)
[2017-10-14] MEDS: CHLORHEXIDINE 0.12% ORAL RINSE 60 ML BOTTLE SWISH/SPIT SCH ×2 (09:29→21:07)
[2017-10-14] MEDS: AMIODARONE 200 MG TABLET PO SCH ×2 (10:13→21:03)
[2017-10-14] MEDS: ROSUVASTATIN 10 MG TABLET PO SCH (21:03)
[2017-10-15] MEDS: methylPREDNISolone SOD SUC 40 MG/1 ML VIAL IV SCH ×4 (01:06→23:53)
[2017-10-15 02:27] LABS: Basophils % 0.1 % (0.0-0.8); Hematocrit 29.3 VOL% (42.0-52.0); Hemoglobin 9.9 GM/DL (14.0-18.0); Immature Granulocytes % 2.1 %; Immature Granulocytes Absolute 0.34 #; Lymphocytes # 1.4 10*3/uL (1.4-4.0); Lymphocytes % 8.4 % (21.2-54.2); Mean Corpuscular HGB Conc 33.8 GM/DL (32-36); Mean Corpuscular Hemoglobin 35 PG (27-34); Mean Corpuscular Volume 102.1 FL (87-102); Mean Platelet Volume 10.1 FL (9.6-12.0); Monocytes # 0.8 10*3/uL (0.11-0.8); Monocytes % 4.7 % (1.7-12.7); NRBC # 0.05 10*3/uL; Neutrophils # 13.6 10*3/uL (1.4-7.4); Neutrophils % 84.7 % (38.7-73.9); Platelet Count 330 T/CUMM (130-400); Red Blood Count 2.87 MC/CUMM (3.8-5.5); Red Cell Distribution Width 12.3 % (9.3-17.3); White Blood Count 16.1 T/CUMM (4-12)
[2017-10-15 02:50] LABS: Calcium 8.5 MG/DL (8.5-10.1); Osmolality,Calculated 292.1 MOS/KG (273-304); Potassium 4.3 MMOL/L (3.5-5.1)
[2017-10-15] MEDS: INSULIN REGULAR 100 UNIT/ML SUBCUT SCH ×5 (06:48→20:22)
[2017-10-15] MEDS: AMIODARONE INJ 450 MG in DEXTROSE 5% 241 ML IV SCH ×2 (06:49→20:17)
[2017-10-15] MEDS: FUROSEMIDE 40 MG TABLET PO SCH (09:54)
[2017-10-15] MEDS: BISACODYL 5 MG TABLET PO SCH (09:54)
[2017-10-15] MEDS: CARVEDILOL 6.25 MG TABLET PO SCH ×2 (09:55→20:18)
[2017-10-15] MEDS: AMIODARONE 200 MG TABLET PO SCH ×2 (09:55→20:18)
[2017-10-15] MEDS: ASPIRIN EC 325 MG TABLET PO SCH (09:55)
[2017-10-15] MEDS: DOCUSATE SODIUM 100 MG CAPSULE PO SCH ×2 (09:55→20:18)
[2017-10-15] MEDS: CLOPIDOGREL 75 MG TABLET PO SCH (10:03)
[2017-10-15] MEDS: CHLORHEXIDINE 0.12% ORAL RINSE 60 ML BOTTLE SWISH/SPIT SCH ×2 (11:13→20:18)
[2017-10-15] MEDS: MORPHINE 4 MG/1 ML VIAL IV PRN (11:51)
[2017-10-15] MEDS: ALPRAZolam 0.25 MG TABLET PO PRN (13:26)
[2017-10-15] MEDS: ROSUVASTATIN 10 MG TABLET PO SCH (20:17)
[2017-10-15] MEDS: ZALEPLON 5 MG CAPSULE PO PRN (23:53)
[2017-10-16] MEDS: INSULIN REGULAR 100 UNIT/ML SUBCUT SCH ×6 (00:22→19:36)
[2017-10-16 05:00] LABS: Basophils % 0.2 % (0.0-0.8); Hematocrit 31.6 VOL% (42.0-52.0); Hemoglobin 10.9 GM/DL (14.0-18.0); Immature Granulocytes % 3.5 %; Lymphocytes # 1.4 10*3/uL (1.4-4.0); Lymphocytes % 8.5 % (21.2-54.2); Mean Corpuscular HGB Conc 34.5 GM/DL (32-36); Mean Corpuscular Hemoglobin 35 PG (27-34); Monocytes # 0.6 10*3/uL (0.11-0.8); Monocytes % 3.5 % (1.7-12.7); NRBC # 0.04 10*3/uL; Neutrophils # 14.3 10*3/uL (1.4-7.4); Neutrophils % 84.3 % (38.7-73.9); Platelet Count 376 T/CUMM (130-400); Red Blood Count 3.16 MC/CUMM (3.8-5.5); Red Cell Distribution Width 12.3 % (9.3-17.3)
[2017-10-16 05:24] LABS: Calcium 8.2 MG/DL (8.5-10.1); Osmolality,Calculated 282.7 MOS/KG (273-304); Potassium 4.5 MMOL/L (3.5-5.1)
[2017-10-16 05:46] LABS: Band Neutrophils 1 % (0-10); Lymphocytes 11 % (20-55); Segmented Neutrophils 83 % (50-85); Total Cells Counted 100
[2017-10-16 05:48] LABS: Hypochromasia 1+; Macrocytosis Slight
[2017-10-16 05:49] LABS: Platelet Estimate Normal
[2017-10-16] MEDS: CARVEDILOL 6.25 MG TABLET PO SCH ×2 (08:22→20:59)
[2017-10-16] MEDS: ALPRAZolam 0.25 MG TABLET PO PRN ×2 (08:22→20:58)
[2017-10-16] MEDS: ASPIRIN EC 325 MG TABLET PO SCH (08:22)
[2017-10-16] MEDS: AMIODARONE 200 MG TABLET PO SCH ×2 (08:22→20:59)
[2017-10-16] MEDS: FUROSEMIDE 40 MG TABLET PO SCH (08:23)
[2017-10-16] MEDS: CLOPIDOGREL 75 MG TABLET PO SCH (08:23)
[2017-10-16] MEDS: BISACODYL 5 MG TABLET PO SCH (08:26)
[2017-10-16] MEDS: DOCUSATE SODIUM 100 MG CAPSULE PO SCH ×2 (08:26→20:58)
[2017-10-16] MEDS: CHLORHEXIDINE 0.12% ORAL RINSE 60 ML BOTTLE SWISH/SPIT SCH ×2 (08:26→20:59)
[2017-10-16] MEDS: AMIODARONE INJ 450 MG in DEXTROSE 5% 241 ML IV SCH (09:05)
[2017-10-16] MEDS ORDERED: SIMETHICONE CHEW 80 MG TABLET PO PRN (19:07)
[2017-10-16] MEDS: ROSUVASTATIN 10 MG TABLET PO SCH (20:58)
[2017-10-16] MEDS: ZALEPLON 5 MG CAPSULE PO PRN (20:59)
[2017-10-17] MEDS: INSULIN REGULAR 100 UNIT/ML SUBCUT SCH ×3 (04:36→09:43)
[2017-10-17 07:46] VITALS: BP 125/73
[2017-10-17] MEDS: ASPIRIN EC 325 MG TABLET PO SCH (09:45)
[2017-10-17] MEDS: BISACODYL 5 MG TABLET PO SCH (09:45)
[2017-10-17] MEDS: AMIODARONE 200 MG TABLET PO SCH (09:46)
[2017-10-17] MEDS: CLOPIDOGREL 75 MG TABLET PO SCH (09:46)
[2017-10-17] MEDS: FUROSEMIDE 40 MG TABLET PO SCH (09:46)
[2017-10-17] MEDS: CARVEDILOL 6.25 MG TABLET PO SCH (09:46)
[2017-10-17] MEDS: DOCUSATE SODIUM 100 MG CAPSULE PO SCH (09:46)
[2017-10-17] MEDS: CHLORHEXIDINE 0.12% ORAL RINSE 60 ML BOTTLE SWISH/SPIT SCH (09:47)
[2017-10-17] MEDS: ALPRAZolam 0.25 MG TABLET PO PRN (11:05)
== END 2017-10-17 11:30 | disposition home health service (06) | DRG 234 ==
LOC: N.CL 06:50 → N.TELES 09:40 → N.CVR 10-10 07:24 → N.ICU 10-11 14:02 → N.TELES 10-12 14:28
PROVIDERS: ADMIT Internal Medicine Interventional Cardiology; ATTEND Internal Medicine Interventional Cardiology
PROC: CLCCHCL (ICD-10-PCS; 2017-10-03 07:15)